=== PATIENT | female | born 1990 | race Caucasian/White ===

== ENCOUNTER 2017-09-22 12:37 | Emergency (ER) | payer MEDICAID ==
[~2017-09-22] VITALS: Ht 160 cm; Wt 51.8 kg
[~2017-09-22 12:37] MED LIST: UNKNOWN ANTIBIOTIC
[2017-09-22 12:39] VITALS: BP 121/88
--- NOTE | 2017-09-22 12:47 | NUR ---
PT AMBULATED TO [facility]
--- NOTE | 2017-09-22 12:53 | NUR ---
PATIENT PRESENTS TO ED WITH C/O GENERAL BODY RASH/ITCHY/PAIN 12/09 X 2 DAYS; TOOK BENADYRL AT 0100 THIS MORNING;DENIES N/V/D; SKIN IS PINK/WARM/DRY; AAOX4 WITH EVEN AND STEADY GAIT; LUNGS CLEAR BL; HR EVEN AND REGULAR; PT DENIES ANY FEVER, CP, SOB, OR COUGH AT THIS TIME; PATIENT POSITIONED FOR COMFORT; HOB ELEVATED; BEDRAILS UP X2; BED DOWN. ER MD MADE AWARE OF PT STATUS.
--- NOTE | 2017-09-22 13:38 | NUR ---
DR ROBERTS EVALUATING PT.
[2017-09-22 13:50] VITALS: BP 119/75
--- NOTE | 2017-09-22 13:55 | NUR ---
Patient discharged with v/s stable. Written and verbal after care instructions given and explained. Patient alert, oriented and verbalized understanding of instructions. Ambulatory with steady gait. All questions addressed prior to discharge. ID band removed. Patient advised to follow up with PMD. Rx of CLARITIN 10MG, PEPCID 40MG given. Patient educated on indication of medication including possible reaction and side effects. Opportunity to ask questions provided and answered.
== END 2017-09-22 13:55 | disposition home or self-care (01) ==
LOC: MED 12:37
DX: T78.49XA Other allergy, initial encounter (principal); X58.XXXA Exposure to other specified factors, initial encounter
CPT/HCPCS: 99283

== ENCOUNTER 2018-03-03 23:38 | Emergency (ER) | payer MEDICAID ==
[~2018-03-03] VITALS: Ht 160 cm; Wt 51.7 kg
[2018-03-03 23:47] VITALS: BP 107/70
--- NOTE | 2018-03-03 23:53 | NUR ---
PT TAKEN TO BED 8
--- NOTE | 2018-03-04 | NUR ---
pt bib family s/p eating hotdog with watt 45 minutes ago, with itchiness on her throat and diff of breathing. she took benadryl 15 minutes ago, with lower abd pain. PT DENIES N/V/D; SKIN IS INTACT, PINK/WARM/DRY; AAOX4, PERRL, WITH EVEN AND STEADY GAIT; LUNGS CLEAR BL, BREATHING UNLABORED; HR EVEN AND REGULAR, BL PERIPHERAL PULSES PRESENT; BS ACTIVE X4, NO TENDERNESS TO PALPATION, NO HEPATOSPLENOMEGALLY PALPATED, RESONANT TO PERCUSSION; PT DENIES ANY FEVER, CP, COUGH AT THIS TIME; PT STATES 5/10 PAIN AT THIS TIME; VSS; PATIENT POSITIONED FOR COMFORT; HOB ELEVATED; BEDRAILS UP X2; BED DOWN.
--- NOTE | 2018-03-04 00:02 | NUR ---
Dr. Bernal evaluating patient at bedside.
[2018-03-04] MEDS: KETOROLAC 60 MG/2 ML VIAL IM ONE (00:16)
--- NOTE | 2018-03-04 00:17 | NUR ---
IM MEDS GIVEN-NADR AT THIS TIME
[2018-03-04 00:37] VITALS: BP 107/70
--- NOTE | 2018-03-04 00:37 | NUR ---
Patient discharged with v/s stable. Written and verbal after care instructions given and explained. Patient alert, oriented and verbalized understanding of instructions. Ambulatory with steady gait. All questions addressed prior to discharge. ID band removed. Patient advised to follow up with PMD. Rx of Motrin and Prednisone given. Patient educated on indication of medication including possible reaction and side effects. Opportunity to ask questions provided and answered.
== END 2018-03-04 00:37 | disposition home or self-care (01) ==
LOC: MED 23:38
DX: T78.40XA Allergy, unspecified, initial encounter (principal); R10.32 Left lower quadrant pain; R06.02 Shortness of breath; X58.XXXA Exposure to other specified factors, initial encounter
CPT/HCPCS: 81002; 81025; 96372; 99283; J1885

== ENCOUNTER 2020-06-27 09:58 | Emergency (ER) | payer MEDICAID ==
[~2020-06-27] VITALS: Ht 160 cm; Wt 56.7 kg
[2020-06-27 10:06] VITALS: BP 107/72
--- NOTE | 2020-06-27 10:16 | NUR ---
Patient ambulated to bed 9. RN evaluating patient at bedside.
--- NOTE | 2020-06-27 10:41 | NUR ---
29 Y/O FEMALE PT C/O VAGINAL DISCHARGE. STARTED 05/23/20, STATES THE DISCHARGE IS YELLOW AND GREEN AND RANGES FROM THIN TO MUCOUS CONSISTENCY. HURTS TO WIPE SOMETIMES, CONSISTENT DISCOMFORT, NO PAIN WITH URINATION. G2 T0 L0. TOOK TEST LAST WEEK FRIDAY POSITIVE, BUT TESTED NEGATIVE IN MAY. 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 NKDA. NO SIGNIFICANT MX.
--- NOTE | 2020-06-27 11:32 | NUR ---
WET MOUNT COLLECTED BY RAISA MICHELLE, WALKED TO LAB
--- NOTE | 2020-06-27 11:51 | NUR ---
US tech at bedside for exam.
[2020-06-27 12:04] LABS: BASOPHILS # (AUTO) 0.2 K/uL (0.00-0.22); BASOPHILS % (AUTO) 2.5 % (0.0-2.0); EOSINOPHILS # (AUTO) 0.2 K/uL (0-0.4); EOSINOPHILS % (AUTO) 3.6 % (0.0-4.0); HEMATOCRIT 39.5 % (36-48); HEMOGLOBIN 13.1 g/dL (12.0-16.0); LYMPHOCYTES # (AUTO) 1.4 K/uL (2.5-16.5); LYMPHOCYTES % (AUTO) 23.6 % (20.5-51.1); MEAN CORPUSCULAR HEMOGLOBIN 26 pg (27-31); MEAN CORPUSCULAR HGB CONC 33 g/dL (33-37); MEAN CORPUSCULAR VOLUME 76.6 fL (80-94); MONOCYTES # (AUTO) 0.6 K/uL (0.8-1.0); MONOCYTES % (AUTO) 10.1 % (1.7-9.3); NEUTROPHILS # (AUTO) 3.7 K/uL (1.8-7.7); NEUTROPHILS % (AUTO) 60.2 % (42.2-75.2); PLATELET COUNT (AUTO) 176 K/uL (140-450); RED BLOOD CELL COUNT(AUTO) 5.16 MIL/uL (4.20-5.40); RED CELL DISTRIBUTION WIDTH 14.8 % (11.6-13.7); WHITE BLOOD COUNT (AUTO) 6.1 K/uL (4.8-10.8)
[2020-06-27 12:50] LABS: APPEARANCE,URINE HAZY (CLEAR); BILIRUBIN,URINE NEGATIVE (NEGATIVE); BLOOD, URINE NEGATIVE (NEGATIVE); COLOR,URINE YELLOW (YELLOW); LEUKOCYTE ESTERASE ,URINE 3+ (NEGATIVE); NITRITE, URINE NEGATIVE (NEGATIVE); PH,URINE 7.5 (5.0-9.0); UGLUCOSE NEGATIVE (NEGATIVE)
[2020-06-27 13:07] LABS: RBC,URINE NONE SEEN /HPF (0-5)
--- NOTE | 2020-06-27 14:48 | NUR ---
Patient discharged with v/s stable. Written and verbal after care instructions given and explained. Patient alert, oriented and verbalized understanding of instructions. Ambulatory with steady gait. All questions addressed prior to discharge. ID band removed. Patient advised to follow up with PMD. Rx of FLAGYL AND VITAMINS given. Patient educated on indication of medication including possible reaction and side effects. Opportunity to ask questions provided and answered.
[2020-06-27 14:52] VITALS: BP 96/67
== END 2020-06-27 14:48 | disposition home or self-care (01) ==
LOC: MED 09:58
DX: O20.0 Threatened abortion (principal); O23.591 Infection of other part of genital tract in pregnancy, first trimester; O23.41 Unspecified infection of urinary tract in pregnancy, first trimester; Z3A.08 8 weeks gestation of pregnancy
CPT/HCPCS: 36415; 76801; 76817; 81001; 81025; 84702; 85025; 86900; 86901; 87086; 87210; 87491; 99285

== ENCOUNTER 2021-01-18 18:45 | Emergency (ER) | payer MEDICAID ==
[~2021-01-18] VITALS: Ht 160 cm; Wt 54.4 kg
[2021-01-18 18:55] VITALS: BP 107/79
--- NOTE | 2021-01-18 19:03 | NUR ---
PT AMBULATED TO BED 9
--- NOTE | 2021-01-18 19:15 | NUR ---
C/O VAGINAL BLEEDING X 9 DAYS WITH C/O LOWER ABDOMINAL PAIN, LOWER BACK PAIN X TODAY. URINE DIPPED., RESULTS TO CHART. (+) HCG PMH: DENIES
[2021-01-18 19:56] LABS: BASOPHILS # (AUTO) 0.1 K/uL (0.00-0.22); BASOPHILS % (AUTO) 1.7 % (0.0-2.0); EOSINOPHILS # (AUTO) 0.2 K/uL (0-0.4); EOSINOPHILS % (AUTO) 2.2 % (0.0-4.0); HEMATOCRIT 37.5 % (36-48); LYMPHOCYTES # (AUTO) 2.8 K/uL (2.5-16.5); LYMPHOCYTES % (AUTO) 37.4 % (20.5-51.1); MEAN CORPUSCULAR HEMOGLOBIN 23 pg (27-31); MEAN CORPUSCULAR HGB CONC 32 g/dL (33-37); MEAN CORPUSCULAR VOLUME 70.4 fL (80-94); MONOCYTES # (AUTO) 0.5 K/uL (0.8-1.0); MONOCYTES % (AUTO) 6.3 % (1.7-9.3); NEUTROPHILS % (AUTO) 52.4 % (42.2-75.2); PLATELET COUNT (AUTO) 229 K/uL (140-450); RED BLOOD CELL COUNT(AUTO) 5.33 MIL/uL (4.20-5.40); RED CELL DISTRIBUTION WIDTH 18.6 % (11.6-13.7); WHITE BLOOD COUNT (AUTO) 7.6 K/uL (4.8-10.8)
[2021-01-18 19:58] LABS: APPEARANCE,URINE CLEAR (CLEAR); BILIRUBIN,URINE 1+ (NEGATIVE); BLOOD, URINE 3+ (NEGATIVE); COLOR,URINE YELLOW (YELLOW); LEUKOCYTE ESTERASE ,URINE TRACE (NEGATIVE); NITRITE, URINE NEGATIVE (NEGATIVE); UGLUCOSE NEGATIVE (NEGATIVE)
[2021-01-18 20:54] LABS: RBC,URINE 50-80 /HPF (0-5); WBC,URINE 0-5 /HPF (0-5)
[2021-01-18] MEDS ORDERED: NITR100C7 PO (21:52)
[2021-01-18 22:08] VITALS: BP 107/79
--- NOTE | 2021-01-18 22:08 | NUR ---
d/c with VSS. d/c education given. opportunity toask questions given and answered. rx macrobid
== END 2021-01-18 22:08 | disposition home or self-care (01) ==
LOC: MED 18:45
DX: O20.0 Threatened abortion (principal); Z3A.01 Less than 8 weeks gestation of pregnancy; Z79.899 Other long term (current) drug therapy
CPT/HCPCS: 36415; 76817; 81001; 81025; 84702; 85025; 86900; 86901; 99284

== ENCOUNTER 2021-01-20 14:27 | Emergency (ER) | payer MEDICAID ==
[~2021-01-20] VITALS: Ht 160 cm; Wt 56.2 kg
[~2021-01-20 14:27] MED LIST changes: +NITR100C7 PO
[2021-01-20 14:36] VITALS: BP 111/76
[2021-01-20 15:25] LABS: BASOPHILS # (AUTO) 0.2 K/uL (0.00-0.22); BASOPHILS % (AUTO) 1.9 % (0.0-2.0); EOSINOPHILS # (AUTO) 0.2 K/uL (0-0.4); EOSINOPHILS % (AUTO) 2.5 % (0.0-4.0); HEMOGLOBIN 12.1 g/dL (12.0-16.0); LYMPHOCYTES # (AUTO) 2.4 K/uL (2.5-16.5); MEAN CORPUSCULAR HEMOGLOBIN 22 pg (27-31); MEAN CORPUSCULAR HGB CONC 32 g/dL (33-37); MEAN CORPUSCULAR VOLUME 70.5 fL (80-94); MONOCYTES # (AUTO) 0.6 K/uL (0.8-1.0); MONOCYTES % (AUTO) 6.9 % (1.7-9.3); NEUTROPHILS # (AUTO) 4.8 K/uL (1.8-7.7); NEUTROPHILS % (AUTO) 58.7 % (42.2-75.2); PLATELET COUNT (AUTO) 214 K/uL (140-450); RED CELL DISTRIBUTION WIDTH 18.4 % (11.6-13.7); WHITE BLOOD COUNT (AUTO) 8.1 K/uL (4.8-10.8)
[2021-01-20] MEDS ORDERED: ACETAMINOPHEN 325 MG TAB PO ONE (15:35)
[2021-01-20 15:39] LABS: ALBUMIN 4.1 g/dL (3.4-5.0); ANION GAP 10.9 (8-16); CARBON DIOXIDE 29.5 mmol/L (21-32); CREATININE 0.9 mg/dL (0.6-1.3); PHOSPHORUS 4.2 mg/dL (2.5-4.9); POTASSIUM 3.4 mmol/L (3.5-5.1); TOTAL BILIRUBIN 0.8 mg/dL (0.0-1.0)
[2021-01-20 16:33] LABS: APPEARANCE,URINE HAZY (CLEAR); BILIRUBIN,URINE NEGATIVE (NEGATIVE); BLOOD, URINE 3+ (NEGATIVE); COLOR,URINE YELLOW (YELLOW); LEUKOCYTE ESTERASE ,URINE TRACE (NEGATIVE); NITRITE, URINE NEGATIVE (NEGATIVE); UGLUCOSE NEGATIVE (NEGATIVE)
[2021-01-20] MEDS ORDERED: POTASSIUM CHLORIDE 10 MEQ TABER PO ONE (16:35)
[2021-01-20 17:24] LABS: BARBITURATE, URINE NEGATIVE ng/ml (NEG <=200); BENZODIAZEPINE, URINE NEGATIVE ng/mL (NEG <=200); CANNABINOID, URINE NEGATIVE ng/mL (NEG <=50); COCAINE, URINE NEGATIVE ng/mL (NEG <=300); OPIATE, URINE NEGATIVE ng/mL (NEG <=2000); PHENCYCLIDINE SCREEN,URINE NEGATIVE ng/mL (NEG <=25)
--- NOTE | 2021-01-20 18:00 | NUR ---
NO NURSING CARE RENDERED
[2021-01-20 18:12] VITALS: BP 112/72
--- NOTE | 2021-01-20 18:14 | NUR ---
Patient discharged with v/s stable. Written and verbal after care instructions given and explained. Patient alert, oriented and verbalized understanding of instructions. Ambulatory with steady gait. All questions addressed prior to discharge. ID band removed. Patient advised to follow up with PMD. Rx of NONE given. Patient educated on indication of medication including possible reaction and side effects. Opportunity to ask questions provided and answered.
[2021-01-20 18:58] LABS: RBC,URINE 11-20 (MOD) /HPF (0-5); WBC,URINE 0-5 /HPF (0-5)
== END 2021-01-20 18:14 | disposition home or self-care (01) ==
LOC: MED 14:27
DX: O03.9 Complete or unspecified spontaneous abortion without complication (principal); O99.351 Diseases of the nervous system complicating pregnancy, first trimester; R42 Dizziness and giddiness; Z3A.01 Less than 8 weeks gestation of pregnancy; Z79.2 Long term (current) use of antibiotics
CPT/HCPCS: 36415; 76817; 80053; 80305; 81001; 81025; 83690; 83735; 84100; 84702; 85025; 99284

== ENCOUNTER 2022-08-26 21:23 | Emergency (ER) | payer MEDICAID ==
[~2022-08-26] VITALS: Ht 160 cm; Wt 53.1 kg
[2022-08-26 21:35] VITALS: BP 130/90
--- NOTE | 2022-08-26 21:38 | NUR ---
TO LOBBY A/W BED AMBULATORY
--- NOTE | 2022-08-26 23:15 | NUR ---
PATIENT LEFT WITHOUT BEING SEEN BY DR. DESAI. NO FURTHER CARE PROVIDED FOR PATIENT. PATIENT DONT WANT TO WAIT, PER ADMITTING STAFF
== END 2022-08-26 23:15 | disposition left against medical advice (07) ==
LOC: MED 21:23
DX: F41.9 Anxiety disorder, unspecified (principal); Z53.21 Procedure and treatment not carried out due to patient leaving prior to being seen by health care provider
CPT/HCPCS: 99281